=== PATIENT | female | born 1955 | race Caucasian/White ===

== ENCOUNTER 2018-07-03 22:26 | Inpatient (IN) | payer OTHER ==
[~2018-07-03] VITALS: Ht 167.6 cm; Wt 59.0 kg
[2018-07-03 22:45] VITALS: BP_SYST 142
[2018-07-03] MEDS ORDERED: COMMUNICATION ORDER XX ONE (22:45)
[2018-07-03] MEDS: MORPHINE 4 MG/ML INJ. SYRINGE IVP PRN (23:36)
[2018-07-03] MEDS ORDERED: LANS30CA56 PO (23:42)
[2018-07-03] MEDS ORDERED: NITR1PAT68 TD (23:43)
[2018-07-03] MEDS ORDERED: IPRA3AMP9 INH ×2 (23:45→23:53)
[2018-07-03] MEDS ORDERED: ASPI-1153 PO (23:46)
[2018-07-03] MEDS ORDERED: LIP10 PO (23:48)
[2018-07-03] MEDS ORDERED: AMLO5TAB4 PO (23:48)
[2018-07-03] MEDS ORDERED: ZIN220 PO (23:51)
[2018-07-03] MEDS ORDERED: ALPR0.5T PO (23:52)
[2018-07-03] MEDS ORDERED: DOCU-144 PO (23:54)
[2018-07-03] MEDS ORDERED: BISA10SU61 RC (23:55)
[2018-07-03] MEDS ORDERED: DIPH25CA83 PO (23:56)
[2018-07-03] MEDS ORDERED: HYDR-551 PO (23:58)
[2018-07-04] VITALS (7 sets, daily range): BP systolic 130–158
[2018-07-04] MEDS ORDERED: ARGI1POW13 PO
[2018-07-04 00:01] LABS: CALCIUM 9.1 mg/dL (8.4-11.0); CREATININE 1.49 mg/dL (0.55-1.30); POTASSIUM 4.1 mmol/L (3.5-5.1)
[2018-07-04] MEDS ORDERED: NEPH PO (00:01)
[2018-07-04] MEDS ORDERED: ASCO500S9 PO (00:03)
[2018-07-04] MEDS ORDERED: CALC500T3 PO (00:05)
[2018-07-04 00:07] LABS: ALBUMIN 2.5 g/dL (3.4-4.8); TOTAL BILIRUBIN 0.8 mg/dL (0.0-1.0)
[2018-07-04 00:10] LABS: BASOPHILS % (AUTO) 0.2 % (0.0-2.0); EOSINOPHILS % (AUTO) 0.4 % (0.0-4.0); HEMOGLOBIN 9.3 g/dL (12.0-16.0); LYMPHOCYTES # (AUTO) 0.7 K/uL (1.0-5.5); LYMPHOCYTES % (AUTO) 6.1 % (20.5-51.5); MEAN CORPUSCULAR HEMOGLOBIN 29 pg (27-31); MEAN CORPUSCULAR HGB CONC 33 % (32-36); MEAN CORPUSCULAR VOLUME 87 fL (79.0-98.0); MONOCYTES # (AUTO) 0.3 K/uL (0.0-1.0); MONOCYTES % (AUTO) 2.8 % (1.7-9.3); NEUTROPHILS # (AUTO) 10.8 K/uL (1.8-7.7); NEUTROPHILS % (AUTO) 90.5 % (40.0-70.0); PLATELET COUNT (AUTO) 383 K/uL (130-430); RED CELL DISTRIBUTION WIDTH 18.3 % (9.0-15.0); WHITE BLOOD COUNT (AUTO) 11.8 K/uL (4.8-10.8)
[2018-07-04 00:26] LABS: PROTHROMBIN TIME 10.3 SECS (9.5-12.5)
[2018-07-04] MEDS: MORPHINE 4 MG/ML INJ. SYRINGE IVP PRN ×2 (03:32→10:37)
[2018-07-04] MEDS ORDERED: HYDROmorphone 1 MG INJ. 1 MG/ML AMPUL IVP ONE (04:45)
[2018-07-04] MEDS ORDERED: MAGNESIUM CITRATE 300 ML ORAL SOLUTION GT ONE (09:45)
[2018-07-04] MEDS ORDERED: MINERAL OIL 30 ML UDC GT ONE (10:00)
[2018-07-04] MEDS: HYDROmorphone 1 MG INJ. 1 MG/ML AMPUL IVP PRN ×3 (13:15→22:49)
[2018-07-04] MEDS: MINERAL OIL 30 ML UDC GT SCH ×3 (13:16→23:39)
[2018-07-04] MEDS ORDERED: BISACODYL 10 MG/SUPPOSITORY RC PRN (13:45)
[2018-07-04] MEDS ORDERED: ONDANSETRON HCL 4 MG/2 ML VIAL IVP PRN (14:00)
[2018-07-04] MEDS ORDERED: NORMAL SALINE 5 ML DISP.SYRIN IVF SCH (14:00)
[2018-07-04] MEDS ORDERED: ACETAMINOPHEN 325 MG TABLET PO PRN (14:00)
[2018-07-04] MEDS ORDERED: NACL 0.9% 1,000 ML IV SCH (15:49)
[2018-07-04] MEDS ORDERED: cefTRIAXone 1 GM IVPB PREMIX 50 ML IV SCH (16:15)
[2018-07-04] MEDS ORDERED: cefTRIAXone 1 GM IVPB PREMIX 50 ML IV ONE (16:20)
[2018-07-04] MEDS ORDERED: NON-FORMULARY MEDICATION (Arginine/Ascorbate Sod/Vite AC (Arginaid Powder) 1 EACH) PO SCH (21:00)
[2018-07-04] MEDS: ATORVASTATIN 10 MG TABLET PO SCH (21:45)
[2018-07-04] MEDS: ASCORBIC ACID 500 MG TABLET PO SCH (21:45)
[2018-07-04] MEDS: NORMAL SALINE 5 ML DISP.SYRIN IVF SCH (22:50)
[2018-07-05 00:36] VITALS: BP_SYST 123
[2018-07-05] MEDS: HYDROmorphone 1 MG INJ. 1 MG/ML AMPUL IVP PRN ×5 (03:35→23:48)
[2018-07-05] MEDS: MINERAL OIL 30 ML UDC GT SCH (06:00)
[2018-07-05] MEDS: NORMAL SALINE 5 ML DISP.SYRIN IVF SCH ×3 (06:22→22:33)
[2018-07-05] MEDS ORDERED: MIDAZOLAM HCL 5 MG/5 ML VIAL ONE (07:11)
[2018-07-05] MEDS ORDERED: SIMETHICONE 40 MG/0.6 ML ML ONE (07:11)
[2018-07-05] MEDS ORDERED: MEPERIDINE HCL/PF 100 MG/ML AMP ONE (07:12)
[2018-07-05 07:20] LABS: CALCIUM 8.7 mg/dL (8.4-11.0); CREATININE 1.34 mg/dL (0.55-1.30); PHOSPHORUS 4.2 mg/dL (2.7-4.5); POTASSIUM 4.7 mmol/L (3.5-5.1)
[2018-07-05 07:48] LABS: HEMATOCRIT 27.8 % (36-48); HEMOGLOBIN 8.8 g/dL (12.0-16.0); MEAN CORPUSCULAR HEMOGLOBIN 28 pg (27-31); MEAN CORPUSCULAR HGB CONC 32 % (32-36); MEAN CORPUSCULAR VOLUME 89 fL (79.0-98.0); PLATELET COUNT (AUTO) 452 K/uL (130-430); RED BLOOD CELL COUNT(AUTO) 3.15 MIL/uL (4.2-6.2); RED CELL DISTRIBUTION WIDTH 18.5 % (9.0-15.0)
[2018-07-05 08:00] VITALS: BP_SYST 135
[2018-07-05 08:02] LABS: C-REACTIVE PROTEIN QUANT 13.2 mg/dL (0-0.5)
[2018-07-05 08:42] LABS: WHITE BLOOD COUNT (AUTO) 13.9 K/uL (4.8-10.8)
[2018-07-05] MEDS ORDERED: cefTRIAXone 1 GM IVPB PREMIX 50 ML IV SCH (09:00)
[2018-07-05] MEDS: ASPIRIN 81 MG TABLET(ECOTRIN) PO SCH (09:47)
[2018-07-05] MEDS: NEPHROVITE, (FOLIC ACID/VITAMIN B COMP W-C 1 TAB) PO SCH (09:48)
[2018-07-05] MEDS: PANTOPRAZOLE SODIUM 40 MG TAB PO SCH (09:51)
[2018-07-05] MEDS: ASCORBIC ACID 500 MG TABLET PO SCH ×2 (09:52→22:00)
[2018-07-05] MEDS: CALCIUM CARBONATE 500 MG/ TAB.CHEW PO SCH (09:53)
[2018-07-05] MEDS: NITROGLYCERIN 0.2 MG/HR PATCH.TD24 TD SCH (10:00)
[2018-07-05] MEDS: amLODIPine BESYLATE 5 MG TABLET PO SCH (10:04)
[2018-07-05 10:19] LABS: ERYTHROCYTE SEDIMENTATION RATE 48 MM/HR (0-20)
[2018-07-05 11:27] LABS: BAND % (MANUAL) 3 % (0-6); BASOPHILS % (MANUAL) 0 % (0-2); EOSINOPHILS % (MANUAL) 0 % (0-7); LYMPHOCYTES % (MANUAL) 2 % (20-46); MONOCYTES % (MANUAL) 1 % (0-11)
[2018-07-05] MEDS: PIPERACILLIN/TAZO 2.25G/DEX-IS 50 ML IV SCH ×2 (13:33→22:00)
[2018-07-05 15:27] VITALS: BP_SYST 147
[2018-07-05 19:45] VITALS: BP_SYST 147
[2018-07-05] MEDS: ATORVASTATIN 10 MG TABLET PO SCH (22:00)
[2018-07-05 23:32] VITALS: BP_SYST 145
[2018-07-06] MEDS: ALPRAZolam 0.25 MG TABLET PO PRN ×3 (00:34→23:56)
[2018-07-06 00:57] VITALS: BP_SYST 145
[2018-07-06] MEDS: HYDROmorphone 1 MG INJ. 1 MG/ML AMPUL IVP PRN ×5 (04:08→23:54)
[2018-07-06] MEDS: PIPERACILLIN/TAZO 2.25G/DEX-IS 50 ML IV SCH ×3 (05:28→21:04)
[2018-07-06] MEDS: NORMAL SALINE 5 ML DISP.SYRIN IVF SCH ×3 (05:33→21:04)
[2018-07-06 07:03] LABS: BASOPHILS % (AUTO) 0.4 % (0.0-2.0); EOSINOPHILS % (AUTO) 0.4 % (0.0-4.0); HEMATOCRIT 27.5 % (36-48); HEMOGLOBIN 8.8 g/dL (12.0-16.0); LYMPHOCYTES # (AUTO) 0.8 K/uL (1.0-5.5); LYMPHOCYTES % (AUTO) 7.4 % (20.5-51.5); MEAN CORPUSCULAR HEMOGLOBIN 28 pg (27-31); MEAN CORPUSCULAR HGB CONC 32 % (32-36); MEAN CORPUSCULAR VOLUME 89 fL (79.0-98.0); MONOCYTES # (AUTO) 0.2 K/uL (0.0-1.0); MONOCYTES % (AUTO) 2.1 % (1.7-9.3); NEUTROPHILS # (AUTO) 9.8 K/uL (1.8-7.7); NEUTROPHILS % (AUTO) 89.7 % (40.0-70.0); PLATELET COUNT (AUTO) 388 K/uL (130-430); RED BLOOD CELL COUNT(AUTO) 3.11 MIL/uL (4.2-6.2); RED CELL DISTRIBUTION WIDTH 17.7 % (9.0-15.0); WHITE BLOOD COUNT (AUTO) 10.8 K/uL (4.8-10.8)
[2018-07-06 07:18] LABS: CALCIUM 8.6 mg/dL (8.4-11.0); CREATININE 1.62 mg/dL (0.55-1.30); PHOSPHORUS 4.2 mg/dL (2.7-4.5); POTASSIUM 4.8 mmol/L (3.5-5.1)
[2018-07-06 07:33] LABS: C-REACTIVE PROTEIN QUANT 12.3 mg/dL (0-0.5)
[2018-07-06 08:00] VITALS: BP_SYST 150
[2018-07-06] MEDS: CALCIUM CARBONATE 500 MG/ TAB.CHEW PO SCH (08:42)
[2018-07-06] MEDS: ASPIRIN 81 MG TABLET(ECOTRIN) PO SCH (08:43)
[2018-07-06] MEDS: amLODIPine BESYLATE 5 MG TABLET PO SCH (08:43)
[2018-07-06] MEDS: NEPHROVITE, (FOLIC ACID/VITAMIN B COMP W-C 1 TAB) PO SCH (08:43)
[2018-07-06] MEDS: ASCORBIC ACID 500 MG TABLET PO SCH ×2 (08:43→21:04)
[2018-07-06] MEDS: PANTOPRAZOLE SODIUM 40 MG TAB PO SCH (08:43)
[2018-07-06] MEDS: NITROGLYCERIN 0.2 MG/HR PATCH.TD24 TD SCH (08:44)
[2018-07-06 08:53] LABS: ERYTHROCYTE SEDIMENTATION RATE 53 MM/HR (0-20)
[2018-07-06 12:28] VITALS: BP_SYST 153
[2018-07-06 15:38] VITALS: BP_SYST 145
[2018-07-06 20:00] VITALS: BP_SYST 153
[2018-07-06] MEDS: ATORVASTATIN 10 MG TABLET PO SCH (21:04)
[2018-07-06 23:24] LABS: CREATININE 1.6 mg/dL (0.55-1.30)
[2018-07-07] VITALS (7 sets, daily range): BP systolic 128–167
[2018-07-07 00:02] LABS: CREATININE CLEARANCE,URINE 24.4 ml/min (80-120); CREATININE,URINE 73.7 MG/DL (30-125)
[2018-07-07] MEDS: HYDROmorphone 1 MG INJ. 1 MG/ML AMPUL IVP PRN ×5 (04:53→21:31)
[2018-07-07] MEDS: PIPERACILLIN/TAZO 2.25G/DEX-IS 50 ML IV SCH ×3 (05:00→21:30)
[2018-07-07] MEDS: NORMAL SALINE 5 ML DISP.SYRIN IVF SCH ×3 (05:00→21:31)
[2018-07-07 06:50] LABS: BASOPHILS % (AUTO) 0.2 % (0.0-2.0); EOSINOPHILS % (AUTO) 0.1 % (0.0-4.0); MEAN CORPUSCULAR HEMOGLOBIN 29 pg (27-31); MEAN CORPUSCULAR HGB CONC 33 % (32-36); MEAN CORPUSCULAR VOLUME 87 fL (79.0-98.0); RED CELL DISTRIBUTION WIDTH 17.9 % (9.0-15.0)
[2018-07-07 07:12] LABS: CALCIUM 8.8 mg/dL (8.4-11.0); CREATININE 1.78 mg/dL (0.55-1.30); PHOSPHORUS 4.9 mg/dL (2.7-4.5)
[2018-07-07 08:07] LABS: C-REACTIVE PROTEIN QUANT 16.2 mg/dL (0-0.5)
[2018-07-07 08:22] LABS: HEMATOCRIT 29.2 % (36-48); HEMOGLOBIN 9.6 g/dL (12.0-16.0); LYMPHOCYTES % (AUTO) 5.4 % (20.5-51.5); MONOCYTES % (AUTO) 3.4 % (1.7-9.3); PLATELET COUNT (AUTO) 482 K/uL (130-430); RED BLOOD CELL COUNT(AUTO) 3.35 MIL/uL (4.2-6.2); WHITE BLOOD COUNT (AUTO) 17.6 K/uL (4.8-10.8)
[2018-07-07 08:23] LABS: MONOCYTES # (AUTO) 0.6 K/uL (0.0-1.0)
[2018-07-07] MEDS: ALPRAZolam 0.25 MG TABLET PO PRN ×2 (09:05→20:06)
[2018-07-07 10:37] LABS: ERYTHROCYTE SEDIMENTATION RATE 63 MM/HR (0-20)
[2018-07-07 11:15] LABS: NEUTROPHILS % (AUTO) 90.9 % (40.0-70.0)
[2018-07-07] MEDS ORDERED: FUROSEMIDE 40 MG/4 ML VIAL IVP ONE (11:30)
[2018-07-07] MEDS: DIPHENHYDRAMINE HCL 25 MG CAPSULE PO PRN ×2 (13:09→20:30)
[2018-07-07] MEDS: NITROGLYCERIN 0.2 MG/HR PATCH.TD24 TD SCH (13:13)
[2018-07-07] MEDS: ASPIRIN 81 MG TABLET(ECOTRIN) PO SCH (13:13)
[2018-07-07] MEDS: NEPHROVITE, (FOLIC ACID/VITAMIN B COMP W-C 1 TAB) PO SCH (13:13)
[2018-07-07] MEDS: ASCORBIC ACID 500 MG TABLET PO SCH ×2 (13:13→20:06)
[2018-07-07] MEDS: amLODIPine BESYLATE 5 MG TABLET PO SCH (13:14)
[2018-07-07] MEDS: PANTOPRAZOLE SODIUM 40 MG TAB PO SCH (13:18)
[2018-07-07] MEDS: CALCIUM CARBONATE 500 MG/ TAB.CHEW PO SCH (13:18)
[2018-07-07] MEDS ORDERED: DIATR MEGLU/DIATRIZ SOD 30 ML SOLUTION PO ONE (15:16)
[2018-07-07] MEDS: ATORVASTATIN 10 MG TABLET PO SCH (20:06)
[2018-07-07] MEDS: HYDROcodone/ACETAMIN 7.5-325 MG TAB PO PRN (23:57)
[2018-07-08 00:16] VITALS: BP_SYST 150
[2018-07-08] MEDS: HYDROmorphone 1 MG INJ. 1 MG/ML AMPUL IVP PRN ×6 (01:24→23:20)
[2018-07-08] MEDS: DIPHENHYDRAMINE HCL 25 MG CAPSULE PO PRN ×2 (04:07→21:06)
[2018-07-08] MEDS: ALPRAZolam 0.25 MG TABLET PO PRN ×2 (04:07→21:06)
[2018-07-08] MEDS: DOCUSATE SODIUM 100 MG CAPSULE PO PRN (05:11)
[2018-07-08] MEDS: PIPERACILLIN/TAZO 2.25G/DEX-IS 50 ML IV SCH ×3 (05:11→21:06)
[2018-07-08] MEDS: NORMAL SALINE 5 ML DISP.SYRIN IVF SCH ×3 (05:15→21:07)
[2018-07-08 06:59] LABS: HEMATOCRIT 24.9 % (36-48); HEMOGLOBIN 8.2 g/dL (12.0-16.0); MEAN CORPUSCULAR HEMOGLOBIN 29 pg (27-31); MEAN CORPUSCULAR HGB CONC 33 % (32-36); MEAN CORPUSCULAR VOLUME 88 fL (79.0-98.0); PLATELET COUNT (AUTO) 568 K/uL (130-430); RED CELL DISTRIBUTION WIDTH 17.9 % (9.0-15.0)
[2018-07-08 07:23] LABS: ALBUMIN 1.7 g/dL (3.4-4.8); C-REACTIVE PROTEIN QUANT 26.2 mg/dL (0-0.5); CALCIUM 8.3 mg/dL (8.4-11.0); CREATININE 2.02 mg/dL (0.55-1.30); PHOSPHORUS 5.7 mg/dL (2.7-4.5); POTASSIUM 4.8 mmol/L (3.5-5.1); TOTAL BILIRUBIN 0.9 mg/dL (0.0-1.0)
[2018-07-08 08:00] VITALS: BP_SYST 107
[2018-07-08 08:09] LABS: RED BLOOD CELL COUNT(AUTO) 2.84 MIL/uL (4.2-6.2); WHITE BLOOD COUNT (AUTO) 20.3 K/uL (4.8-10.8)
[2018-07-08 09:05] LABS: ERYTHROCYTE SEDIMENTATION RATE 53 MM/HR (0-20)
[2018-07-08 09:17] LABS: BAND % (MANUAL) 1 % (0-6); LYMPHOCYTES % (MANUAL) 5 % (20-46)
[2018-07-08 09:18] LABS: BASOPHILS % (MANUAL) 0 % (0-2); EOSINOPHILS % (MANUAL) 2 % (0-7); MONOCYTES % (MANUAL) 2 % (0-11)
[2018-07-08] MEDS: ASCORBIC ACID 500 MG TABLET PO SCH ×2 (09:25→21:06)
[2018-07-08] MEDS: NEPHROVITE, (FOLIC ACID/VITAMIN B COMP W-C 1 TAB) PO SCH (09:25)
[2018-07-08] MEDS: ASPIRIN 81 MG TABLET(ECOTRIN) PO SCH (09:26)
[2018-07-08] MEDS: PANTOPRAZOLE SODIUM 40 MG TAB PO SCH (09:26)
[2018-07-08] MEDS: CALCIUM CARBONATE 500 MG/ TAB.CHEW PO SCH (09:26)
[2018-07-08] MEDS: NITROGLYCERIN 0.2 MG/HR PATCH.TD24 TD SCH (09:28)
[2018-07-08] MEDS: amLODIPine BESYLATE 5 MG TABLET PO SCH (09:32)
[2018-07-08 12:25] VITALS: BP_SYST 148
[2018-07-08 16:02] VITALS: BP_SYST 119
[2018-07-08 19:16] VITALS: BP_SYST 131
[2018-07-08] MEDS: ATORVASTATIN 10 MG TABLET PO SCH (21:06)
[2018-07-08] MEDS: IPRATROPIUM/ALBUTEROL SULFATE 3 ML AMPUL.NEB (DUONEB) INH PRN (21:24)
[2018-07-08 23:35] VITALS: BP_SYST 122
[2018-07-09] MEDS: HYDROcodone/ACETAMIN 7.5-325 MG TAB PO PRN ×2 (02:21→13:07)
[2018-07-09] MEDS: DOCUSATE SODIUM 100 MG CAPSULE PO PRN ×2 (02:21→21:51)
[2018-07-09] MEDS: HYDROmorphone 1 MG INJ. 1 MG/ML AMPUL IVP PRN ×4 (03:16→21:50)
[2018-07-09] MEDS: PIPERACILLIN/TAZO 2.25G/DEX-IS 50 ML IV SCH ×3 (05:43→21:51)
[2018-07-09] MEDS: NORMAL SALINE 5 ML DISP.SYRIN IVF SCH ×3 (05:44→21:51)
[2018-07-09] MEDS: DIPHENHYDRAMINE HCL 25 MG CAPSULE PO PRN ×3 (05:44→21:50)
[2018-07-09] MEDS: ALPRAZolam 0.25 MG TABLET PO PRN ×2 (05:44→14:56)
[2018-07-09 08:22] VITALS: BP_SYST 134
[2018-07-09 09:18] LABS: HEMOGLOBIN 10.1 g/dL (12.0-16.0); MEAN CORPUSCULAR HEMOGLOBIN 28 pg (27-31); MEAN CORPUSCULAR HGB CONC 32 % (32-36); MEAN CORPUSCULAR VOLUME 88 fL (79.0-98.0); PLATELET COUNT (AUTO) 574 K/uL (130-430); RED CELL DISTRIBUTION WIDTH 17.4 % (9.0-15.0)
[2018-07-09 09:29] LABS: CALCIUM 8.6 mg/dL (8.4-11.0); CREATININE 2.3 mg/dL (0.55-1.30); POTASSIUM 4.7 mmol/L (3.5-5.1)
[2018-07-09 09:34] LABS: ALBUMIN 2.1 g/dL (3.4-4.8); TOTAL BILIRUBIN 0.7 mg/dL (0.0-1.0)
[2018-07-09 09:36] LABS: RED BLOOD CELL COUNT(AUTO) 3.64 MIL/uL (4.2-6.2); WHITE BLOOD COUNT (AUTO) 19.9 K/uL (4.8-10.8)
[2018-07-09] MEDS: CALCIUM CARBONATE 500 MG/ TAB.CHEW PO SCH (09:41)
[2018-07-09] MEDS: PANTOPRAZOLE SODIUM 40 MG TAB PO SCH (09:44)
[2018-07-09] MEDS: NITROGLYCERIN 0.2 MG/HR PATCH.TD24 TD SCH (09:44)
[2018-07-09] MEDS: ASPIRIN 81 MG TABLET(ECOTRIN) PO SCH (09:45)
[2018-07-09] MEDS: ASCORBIC ACID 500 MG TABLET PO SCH ×2 (09:45→21:51)
[2018-07-09] MEDS: amLODIPine BESYLATE 5 MG TABLET PO SCH (09:45)
[2018-07-09] MEDS: NEPHROVITE, (FOLIC ACID/VITAMIN B COMP W-C 1 TAB) PO SCH (09:45)
[2018-07-09 09:46] LABS: C-REACTIVE PROTEIN QUANT 12.8 mg/dL (0-0.5)
[2018-07-09 11:44] LABS: ERYTHROCYTE SEDIMENTATION RATE 36 MM/HR (0-20)
[2018-07-09 12:19] VITALS: BP_SYST 110
[2018-07-09 13:07] LABS: ATYPICAL LYMPHOCYTES % 2 % (0-0); BAND % (MANUAL) 3 % (0-6); LYMPHOCYTES % (MANUAL) 10 % (20-46); MONOCYTES % (MANUAL) 6 % (0-11)
[2018-07-09 13:08] LABS: BASOPHILS % (MANUAL) 0 % (0-2); EOSINOPHILS % (MANUAL) 3 % (0-7)
[2018-07-09 16:56] VITALS: BP_SYST 117
[2018-07-09 19:20] VITALS: BP_SYST 139
[2018-07-09] MEDS: ATORVASTATIN 10 MG TABLET PO SCH (21:51)
[2018-07-09 23:32] VITALS: BP_SYST 149
[2018-07-10] MEDS: ALPRAZolam 0.25 MG TABLET PO PRN ×3 (01:35→20:29)
[2018-07-10] MEDS: HYDROmorphone 1 MG INJ. 1 MG/ML AMPUL IVP PRN ×5 (01:36→23:54)
[2018-07-10] MEDS: HYDROcodone/ACETAMIN 7.5-325 MG TAB PO PRN (03:16)
[2018-07-10 06:05] LABS: C-REACTIVE PROTEIN QUANT 7.5 mg/dL (0-0.5); CREATININE 2.05 mg/dL (0.55-1.30); PHOSPHORUS 4.6 mg/dL (2.7-4.5); POTASSIUM 4.8 mmol/L (3.5-5.1)
[2018-07-10] MEDS: NORMAL SALINE 5 ML DISP.SYRIN IVF SCH ×3 (06:22→22:47)
[2018-07-10] MEDS: PIPERACILLIN/TAZO 2.25G/DEX-IS 50 ML IV SCH ×3 (06:22→22:46)
[2018-07-10 07:26] LABS: HEMATOCRIT 24.2 % (36-48); MEAN CORPUSCULAR HEMOGLOBIN 29 pg (27-31); MEAN CORPUSCULAR HGB CONC 33 % (32-36); MEAN CORPUSCULAR VOLUME 87 fL (79.0-98.0); PLATELET COUNT (AUTO) 616 K/uL (130-430); RED CELL DISTRIBUTION WIDTH 17.4 % (9.0-15.0)
[2018-07-10 08:00] VITALS: BP_SYST 147
[2018-07-10 08:43] LABS: RED BLOOD CELL COUNT(AUTO) 2.78 MIL/uL (4.2-6.2)
[2018-07-10 08:44] LABS: WHITE BLOOD COUNT (AUTO) 12.4 K/uL (4.8-10.8)
[2018-07-10] MEDS: CALCIUM CARBONATE 500 MG/ TAB.CHEW PO SCH (08:47)
[2018-07-10] MEDS: NEPHROVITE, (FOLIC ACID/VITAMIN B COMP W-C 1 TAB) PO SCH (08:48)
[2018-07-10] MEDS: ASCORBIC ACID 500 MG TABLET PO SCH ×2 (08:48→20:28)
[2018-07-10] MEDS: PANTOPRAZOLE SODIUM 40 MG TAB PO SCH (08:48)
[2018-07-10] MEDS: amLODIPine BESYLATE 5 MG TABLET PO SCH (08:49)
[2018-07-10] MEDS: ASPIRIN 81 MG TABLET(ECOTRIN) PO SCH (08:50)
[2018-07-10] MEDS: DIPHENHYDRAMINE HCL 25 MG CAPSULE PO PRN (09:14)
[2018-07-10] MEDS: NITROGLYCERIN 0.2 MG/HR PATCH.TD24 TD SCH (09:14)
[2018-07-10] MEDS ORDERED: LIDOCAINE 1%, 20 ML MDV 20 ML ONE (10:01)
[2018-07-10 10:03] LABS: ERYTHROCYTE SEDIMENTATION RATE 46 MM/HR (0-20)
[2018-07-10 10:17] LABS: BAND % (MANUAL) 1 % (0-6); LYMPHOCYTES % (MANUAL) 15 % (20-46)
[2018-07-10 10:18] LABS: BASOPHILS % (MANUAL) 0 % (0-2); EOSINOPHILS % (MANUAL) 1 % (0-7); MONOCYTES % (MANUAL) 3 % (0-11)
[2018-07-10 12:00] VITALS: BP_SYST 124
[2018-07-10 16:11] VITALS: BP_SYST 120
[2018-07-10 19:00] VITALS: BP_SYST 120
[2018-07-10 20:00] VITALS: BP_SYST 115
[2018-07-10] MEDS: ATORVASTATIN 10 MG TABLET PO SCH (20:27)
[2018-07-11 00:06] VITALS: BP_SYST 150
[2018-07-11] MEDS: DIPHENHYDRAMINE HCL 25 MG CAPSULE PO PRN (02:07)
[2018-07-11] MEDS: HYDROmorphone 1 MG INJ. 1 MG/ML AMPUL IVP PRN ×4 (04:35→20:15)
[2018-07-11] MEDS: ALPRAZolam 0.25 MG TABLET PO PRN ×2 (04:38→15:41)
[2018-07-11] MEDS: NORMAL SALINE 5 ML DISP.SYRIN IVF SCH ×3 (06:42→22:54)
[2018-07-11] MEDS: PIPERACILLIN/TAZO 2.25G/DEX-IS 50 ML IV SCH ×3 (06:42→22:53)
[2018-07-11] MEDS: HYDROcodone/ACETAMIN 7.5-325 MG TAB PO PRN ×2 (06:49→22:54)
[2018-07-11 07:57] LABS: ALBUMIN 2.1 g/dL (3.4-4.8); C-REACTIVE PROTEIN QUANT 8.3 mg/dL (0-0.5); CALCIUM 8.7 mg/dL (8.4-11.0); CREATININE 2.1 mg/dL (0.55-1.30); PHOSPHORUS 4.4 mg/dL (2.7-4.5); POTASSIUM 4.3 mmol/L (3.5-5.1); TOTAL BILIRUBIN 0.6 mg/dL (0.0-1.0)
[2018-07-11 08:24] LABS: HEMATOCRIT 26.9 % (36-48); MEAN CORPUSCULAR HEMOGLOBIN 29 pg (27-31); MEAN CORPUSCULAR HGB CONC 33 % (32-36); MEAN CORPUSCULAR VOLUME 87 fL (79.0-98.0); PLATELET COUNT (AUTO) 640 K/uL (130-430); RED BLOOD CELL COUNT(AUTO) 3.09 MIL/uL (4.2-6.2); RED CELL DISTRIBUTION WIDTH 17.9 % (9.0-15.0)
[2018-07-11] MEDS: CALCIUM CARBONATE 500 MG/ TAB.CHEW PO SCH (08:43)
[2018-07-11] MEDS: NEPHROVITE, (FOLIC ACID/VITAMIN B COMP W-C 1 TAB) PO SCH (08:43)
[2018-07-11] MEDS: ASCORBIC ACID 500 MG TABLET PO SCH ×2 (08:43→20:16)
[2018-07-11] MEDS: PANTOPRAZOLE SODIUM 40 MG TAB PO SCH (08:43)
[2018-07-11] MEDS: ASPIRIN 81 MG TABLET(ECOTRIN) PO SCH (08:46)
[2018-07-11] MEDS: NITROGLYCERIN 0.2 MG/HR PATCH.TD24 TD SCH (08:46)
[2018-07-11] MEDS: amLODIPine BESYLATE 5 MG TABLET PO SCH (08:46)
[2018-07-11 08:50] LABS: WHITE BLOOD COUNT (AUTO) 29.6 K/uL (4.8-10.8)
[2018-07-11 11:12] LABS: BASOPHILS % (MANUAL) 0 % (0-2); EOSINOPHILS % (MANUAL) 0 % (0-7); LYMPHOCYTES % (MANUAL) 11 % (20-46); MONOCYTES % (MANUAL) 3 % (0-11)
[2018-07-11 11:13] LABS: ERYTHROCYTE SEDIMENTATION RATE 51 MM/HR (0-20)
[2018-07-11 11:34] VITALS: BP_SYST 141
[2018-07-11 15:36] VITALS: BP_SYST 145
[2018-07-11 20:15] VITALS: BP_SYST 143
[2018-07-11] MEDS: ATORVASTATIN 10 MG TABLET PO SCH (20:16)
[2018-07-12 01:11] VITALS: BP_SYST 131
[2018-07-12] MEDS: HYDROmorphone 1 MG INJ. 1 MG/ML AMPUL IVP PRN ×5 (04:59→21:14)
[2018-07-12] MEDS ORDERED: metroNIDAZOLE 500 mg/NS 100 ML IV ONE (05:48)
[2018-07-12] MEDS: metroNIDAZOLE 500 mg/NS 100 ML IV SCH ×3 (06:39→21:12)
[2018-07-12] MEDS: HYDROcodone/ACETAMIN 7.5-325 MG TAB PO PRN ×2 (06:40→18:58)
[2018-07-12] MEDS: NORMAL SALINE 5 ML DISP.SYRIN IVF SCH ×3 (06:41→21:13)
[2018-07-12 07:20] LABS: HEMATOCRIT 30.1 % (36-48); HEMOGLOBIN 10.1 g/dL (12.0-16.0); MEAN CORPUSCULAR HEMOGLOBIN 29 pg (27-31); MEAN CORPUSCULAR HGB CONC 34 % (32-36); MEAN CORPUSCULAR VOLUME 87 fL (79.0-98.0); RED BLOOD CELL COUNT(AUTO) 3.46 MIL/uL (4.2-6.2); RED CELL DISTRIBUTION WIDTH 17.7 % (9.0-15.0); WHITE BLOOD COUNT (AUTO) 22.6 K/uL (4.8-10.8)
[2018-07-12 07:35] LABS: CREATININE 2.48 mg/dL (0.55-1.30)
[2018-07-12 07:44] VITALS: BP_SYST 131
[2018-07-12 08:00] VITALS: BP_SYST 131
[2018-07-12 08:29] LABS: PLATELET COUNT (AUTO) 1067 K/uL (130-430)
[2018-07-12 08:56] LABS: PHOSPHORUS 5.1 mg/dL (2.7-4.5)
[2018-07-12] MEDS ORDERED: BISACODYL 10 MG/SUPPOSITORY RC ONE (09:00)
[2018-07-12] MEDS: NEPHROVITE, (FOLIC ACID/VITAMIN B COMP W-C 1 TAB) PO SCH (09:08)
[2018-07-12] MEDS: amLODIPine BESYLATE 5 MG TABLET PO SCH (09:09)
[2018-07-12] MEDS: ASPIRIN 81 MG TABLET(ECOTRIN) PO SCH (09:09)
[2018-07-12] MEDS: CALCIUM CARBONATE 500 MG/ TAB.CHEW PO SCH (09:09)
[2018-07-12] MEDS: ASCORBIC ACID 500 MG TABLET PO SCH ×2 (09:09→21:11)
[2018-07-12] MEDS: PANTOPRAZOLE SODIUM 40 MG TAB PO SCH (09:09)
[2018-07-12] MEDS: NITROGLYCERIN 0.2 MG/HR PATCH.TD24 TD SCH (09:10)
[2018-07-12] MEDS: POLYETHYLENE GLYCOL 3350, 17 GM/ POWD.PACK PO SCH (09:17)
[2018-07-12] MEDS ORDERED: ENOXAPARIN SODIUM 40 MG/0.4 ML SYRINGE SUBCUT ONE (09:30)
[2018-07-12 10:41] LABS: ATYPICAL LYMPHOCYTES % 1 % (0-0); BAND % (MANUAL) 3 % (0-6); BASOPHILS % (MANUAL) 0 % (0-2); EOSINOPHILS % (MANUAL) 3 % (0-7); LYMPHOCYTES % (MANUAL) 13 % (20-46); MONOCYTES % (MANUAL) 1 % (0-11)
[2018-07-12 11:23] VITALS: BP_SYST 137
[2018-07-12 15:24] VITALS: BP_SYST 139
[2018-07-12 17:03] LABS: BILIRUBIN,URINE NEGATIVE (NEGATIVE); BLOOD, URINE 2+ (NEGATIVE); CLARITY/URINE CLEAR (CLEAR); COLOR,URINE YELLOW (YELLOW); GLUCOSE,URINE NEGATIVE (NEGATIVE); KETONES,URINE NEGATIVE (NEGATIVE); LEUKOCYTE ESTERASE ,URINE TRACE (NEGATIVE); NITRITE, URINE NEGATIVE (NEGATIVE); PROTEIN URINE 2+ (NEGATIVE); UROBILINOGEN,URINE 0.2 (0.2-1.0)
[2018-07-12] MEDS: 0.45% NACL 1,000 ML IV SCH (17:14)
[2018-07-12] MEDS: DIPHENHYDRAMINE HCL 25 MG CAPSULE PO PRN (17:16)
[2018-07-12 17:21] LABS: BACTERIA,URINE MODERATE /HPF (None Seen)
[2018-07-12 17:22] LABS: YEAST,URINE Few /HPF (None Seen)
[2018-07-12 20:00] VITALS: BP_SYST 153
[2018-07-12] MEDS: ATORVASTATIN 10 MG TABLET PO SCH (21:12)
[2018-07-12 22:12] LABS: CHLORIDE,URINE RANDOM 19 mmol/L (55-125); URINE SODIUM, RANDOM 12 mmol/L (40-220)
[2018-07-12] MEDS: ALPRAZolam 0.25 MG TABLET PO PRN (22:42)
[2018-07-13 00:15] VITALS: BP_SYST 111
[2018-07-13] MEDS: HYDROmorphone 1 MG INJ. 1 MG/ML AMPUL IVP PRN ×4 (01:18→16:57)
[2018-07-13] MEDS: metroNIDAZOLE 500 mg/NS 100 ML IV SCH (06:21)
[2018-07-13] MEDS: 0.45% NACL 1,000 ML IV SCH ×2 (06:21→19:41)
[2018-07-13] MEDS: NORMAL SALINE 5 ML DISP.SYRIN IVF SCH ×2 (06:34→13:56)
[2018-07-13 08:00] VITALS: BP_SYST 143
[2018-07-13] MEDS: ENOXAPARIN SODIUM 40 MG/0.4 ML SYRINGE SUBCUT SCH (08:43)
[2018-07-13] MEDS: ASPIRIN 81 MG TABLET(ECOTRIN) PO SCH (08:44)
[2018-07-13] MEDS: ASCORBIC ACID 500 MG TABLET PO SCH ×2 (08:44→22:19)
[2018-07-13] MEDS: NEPHROVITE, (FOLIC ACID/VITAMIN B COMP W-C 1 TAB) PO SCH (08:44)
[2018-07-13] MEDS: CALCIUM CARBONATE 500 MG/ TAB.CHEW PO SCH (08:44)
[2018-07-13] MEDS: PANTOPRAZOLE SODIUM 40 MG TAB PO SCH (08:44)
[2018-07-13] MEDS: POLYETHYLENE GLYCOL 3350, 17 GM/ POWD.PACK PO SCH (08:44)
[2018-07-13] MEDS: HYDROcodone/ACETAMIN 7.5-325 MG TAB PO PRN ×2 (08:45→19:38)
[2018-07-13] MEDS: amLODIPine BESYLATE 5 MG TABLET PO SCH (08:46)
[2018-07-13 09:00] LABS: ALBUMIN 2.1 g/dL (3.4-4.8); C-REACTIVE PROTEIN QUANT 9.7 mg/dL (0-0.5); CALCIUM 8.6 mg/dL (8.4-11.0); CREATININE 2.42 mg/dL (0.55-1.30); POTASSIUM 4.8 mmol/L (3.5-5.1); TOTAL BILIRUBIN 0.5 mg/dL (0.0-1.0)
[2018-07-13 09:41] LABS: BASOPHILS # (AUTO) 0.1 K/uL (0.0-0.2); BASOPHILS % (AUTO) 0.9 % (0.0-2.0); EOSINOPHILS # (AUTO) 0.3 K/uL (0.0-0.4); EOSINOPHILS % (AUTO) 2.5 % (0.0-4.0); HEMATOCRIT 30.2 % (36-48); HEMOGLOBIN 9.6 g/dL (12.0-16.0); LYMPHOCYTES # (AUTO) 1.2 K/uL (1.0-5.5); LYMPHOCYTES % (AUTO) 10.4 % (20.5-51.5); MEAN CORPUSCULAR HEMOGLOBIN 28 pg (27-31); MEAN CORPUSCULAR HGB CONC 32 % (32-36); MEAN CORPUSCULAR VOLUME 88 fL (79.0-98.0); MONOCYTES # (AUTO) 0.1 K/uL (0.0-1.0); MONOCYTES % (AUTO) 1.3 % (1.7-9.3); NEUTROPHILS # (AUTO) 9.4 K/uL (1.8-7.7); NEUTROPHILS % (AUTO) 84.9 % (40.0-70.0); PLATELET COUNT (AUTO) 671 K/uL (130-430); RED BLOOD CELL COUNT(AUTO) 3.42 MIL/uL (4.2-6.2); RED CELL DISTRIBUTION WIDTH 18.1 % (9.0-15.0); WHITE BLOOD COUNT (AUTO) 11.1 K/uL (4.8-10.8)
[2018-07-13] MEDS ORDERED: CIPROFLOXACIN HCL 500 MG TABLET PO ONE (10:30)
[2018-07-13 11:00] LABS: ERYTHROCYTE SEDIMENTATION RATE 44 MM/HR (0-20)
[2018-07-13] MEDS: NITROGLYCERIN 0.2 MG/HR PATCH.TD24 TD SCH (11:48)
[2018-07-13 12:02] VITALS: BP_SYST 143
[2018-07-13] MEDS: MAGNESIUM CITRATE 300 ML ORAL SOLUTION PO ONE ×2 (14:44→14:47)
[2018-07-13] MEDS: MUPIROCIN 2% TOPICAL OINTMENT 22 GM NS SCH ×2 (14:44→22:20)
[2018-07-13 16:02] VITALS: BP_SYST 139
[2018-07-13 20:00] VITALS: BP_SYST 157
[2018-07-13] MEDS: ATORVASTATIN 10 MG TABLET PO SCH (22:18)
[2018-07-13] MEDS: ALPRAZolam 0.25 MG TABLET PO PRN (22:19)
[2018-07-13] MEDS: metroNIDAZOLE 500 MG TABLET PO SCH (22:19)
[2018-07-13] MEDS: CIPROFLOXACIN HCL 500 MG TABLET PO SCH (22:20)
[2018-07-13 23:29] VITALS: BP_SYST 157
[2018-07-14] MEDS: HYDROmorphone 1 MG INJ. 1 MG/ML AMPUL IVP PRN ×4 (01:13→20:39)
[2018-07-14 06:47] LABS: HEMATOCRIT 24.1 % (36-48); HEMOGLOBIN 7.9 g/dL (12.0-16.0); MEAN CORPUSCULAR HEMOGLOBIN 29 pg (27-31); MEAN CORPUSCULAR HGB CONC 33 % (32-36); MEAN CORPUSCULAR VOLUME 88 fL (79.0-98.0); PLATELET COUNT (AUTO) 561 K/uL (130-430); RED BLOOD CELL COUNT(AUTO) 2.73 MIL/uL (4.2-6.2); RED CELL DISTRIBUTION WIDTH 17.5 % (9.0-15.0)
[2018-07-14 07:06] LABS: C-REACTIVE PROTEIN QUANT 7.9 mg/dL (0-0.5); CALCIUM 8.3 mg/dL (8.4-11.0); CREATININE 2.52 mg/dL (0.55-1.30); PHOSPHORUS 4.4 mg/dL (2.7-4.5); POTASSIUM 4.9 mmol/L (3.5-5.1)
[2018-07-14 08:07] VITALS: BP_SYST 151
[2018-07-14] MEDS: 0.45% NACL 1,000 ML IV SCH (08:15)
[2018-07-14] MEDS: NEPHROVITE, (FOLIC ACID/VITAMIN B COMP W-C 1 TAB) PO SCH (09:01)
[2018-07-14] MEDS: metroNIDAZOLE 500 MG TABLET PO SCH ×2 (09:01→20:38)
[2018-07-14] MEDS: ASPIRIN 81 MG TABLET(ECOTRIN) PO SCH (09:01)
[2018-07-14] MEDS: MUPIROCIN 2% TOPICAL OINTMENT 22 GM NS SCH ×2 (09:01→20:38)
[2018-07-14] MEDS: POLYETHYLENE GLYCOL 3350, 17 GM/ POWD.PACK PO SCH (09:01)
[2018-07-14] MEDS: PANTOPRAZOLE SODIUM 40 MG TAB PO SCH (09:01)
[2018-07-14] MEDS: ASCORBIC ACID 500 MG TABLET PO SCH ×2 (09:01→20:38)
[2018-07-14] MEDS: CIPROFLOXACIN HCL 500 MG TABLET PO SCH ×2 (09:02→22:16)
[2018-07-14] MEDS: amLODIPine BESYLATE 5 MG TABLET PO SCH (09:02)
[2018-07-14] MEDS: CALCIUM CARBONATE 500 MG/ TAB.CHEW PO SCH (09:02)
[2018-07-14] MEDS: NITROGLYCERIN 0.2 MG/HR PATCH.TD24 TD SCH (09:03)
[2018-07-14] MEDS: ENOXAPARIN SODIUM 40 MG/0.4 ML SYRINGE SUBCUT SCH (09:04)
[2018-07-14] MEDS: IPRATROPIUM/ALBUTEROL SULFATE 3 ML AMPUL.NEB (DUONEB) INH PRN ×3 (10:17→19:41)
[2018-07-14 11:08] LABS: ERYTHROCYTE SEDIMENTATION RATE 55 MM/HR (0-20)
[2018-07-14 12:00] VITALS: BP_SYST 129
[2018-07-14 13:49] LABS: WHITE BLOOD COUNT (AUTO) 15.6 K/uL (4.8-10.8)
[2018-07-14 13:56] LABS: BAND % (MANUAL) 9 % (0-6); LYMPHOCYTES % (MANUAL) 5 % (20-46)
[2018-07-14 13:57] LABS: BASOPHILS % (MANUAL) 0 % (0-2); EOSINOPHILS % (MANUAL) 0 % (0-7); METAMYELOCYTES % 1 % (0-0); MONOCYTES % (MANUAL) 2 % (0-11)
[2018-07-14] MEDS: NACL 0.9% 1,000 ML IV SCH (13:57)
[2018-07-14] MEDS ORDERED: DIATR MEGLU/DIATRIZ SOD 30 ML SOLUTION PO ONE ×2 (14:10→14:47)
[2018-07-14 16:55] VITALS: BP_SYST 132
[2018-07-14 20:00] VITALS: BP_SYST 142
[2018-07-14] MEDS: ATORVASTATIN 10 MG TABLET PO SCH (20:38)
[2018-07-14] MEDS: NORMAL SALINE 5 ML DISP.SYRIN IVF SCH (22:16)
[2018-07-14] MEDS: ALPRAZolam 0.25 MG TABLET PO PRN (23:04)
[2018-07-15] VITALS (7 sets, daily range): BP systolic 128–176
[2018-07-15] MEDS: HYDROmorphone 1 MG INJ. 1 MG/ML AMPUL IVP PRN ×5 (01:06→22:33)
[2018-07-15] MEDS: NACL 0.9% 1,000 ML IV SCH ×2 (04:47→18:42)
[2018-07-15] MEDS: NORMAL SALINE 5 ML DISP.SYRIN IVF SCH ×3 (06:00→22:32)
[2018-07-15] MEDS ORDERED: METOPROLOL TARTRATE 25 MG TABLET PO ONE (06:00)
[2018-07-15 07:00] LABS: TOTAL IRON BIND. CAPACITY 208 ug/dL (250-450)
[2018-07-15] MEDS ORDERED: NS 250 ML IV SCH (07:00)
[2018-07-15 07:05] LABS: INR 1.1 (0.8-1.2); PROTHROMBIN TIME 10.9 SECS (9.5-12.5)
[2018-07-15 07:13] LABS: HEMATOCRIT 24.1 % (36-48); MEAN CORPUSCULAR HGB CONC 33 % (32-36)
[2018-07-15 07:20] LABS: MEAN CORPUSCULAR HEMOGLOBIN 29 pg (27-31); MEAN CORPUSCULAR VOLUME 88 fL (79.0-98.0); RED BLOOD CELL COUNT(AUTO) 2.73 MIL/uL (4.2-6.2); RED CELL DISTRIBUTION WIDTH 17.8 % (9.0-15.0); WHITE BLOOD COUNT (AUTO) 25.6 K/uL (4.8-10.8)
[2018-07-15 07:22] LABS: PLATELET COUNT (AUTO) 541 K/uL (130-430)
[2018-07-15 07:24] LABS: ALBUMIN 2.1 g/dL (3.4-4.8); C-REACTIVE PROTEIN QUANT 8.3 mg/dL (0-0.5); CALCIUM 8.3 mg/dL (8.4-11.0); CREATININE 3.07 mg/dL (0.55-1.30); PHOSPHORUS 4.8 mg/dL (2.7-4.5); TOTAL BILIRUBIN 0.5 mg/dL (0.0-1.0)
[2018-07-15 07:26] LABS: POTASSIUM 5.7 mmol/L (3.5-5.1)
[2018-07-15] MEDS: IPRATROPIUM/ALBUTEROL SULFATE 3 ML AMPUL.NEB (DUONEB) INH PRN ×4 (07:35→21:29)
[2018-07-15 08:05] LABS: BAND % (MANUAL) 1 % (0-6); BASOPHILS % (MANUAL) 0 % (0-2); EOSINOPHILS % (MANUAL) 1 % (0-7); LYMPHOCYTES % (MANUAL) 8 % (20-46); MONOCYTES % (MANUAL) 4 % (0-11)
[2018-07-15 08:08] LABS: ERYTHROCYTE SEDIMENTATION RATE 72 MM/HR (0-20)
[2018-07-15] MEDS: metroNIDAZOLE 500 MG TABLET PO SCH ×2 (10:31→22:31)
[2018-07-15] MEDS: ALPRAZolam 0.25 MG TABLET PO PRN ×2 (10:31→20:06)
[2018-07-15] MEDS: PANTOPRAZOLE SODIUM 40 MG TAB PO SCH (10:32)
[2018-07-15] MEDS: NEPHROVITE, (FOLIC ACID/VITAMIN B COMP W-C 1 TAB) PO SCH (10:32)
[2018-07-15] MEDS: CIPROFLOXACIN HCL 500 MG TABLET PO SCH ×2 (10:32→22:32)
[2018-07-15] MEDS: ASPIRIN 81 MG TABLET(ECOTRIN) PO SCH (10:32)
[2018-07-15] MEDS: ASCORBIC ACID 500 MG TABLET PO SCH ×2 (10:33→22:31)
[2018-07-15] MEDS: NITROGLYCERIN 0.2 MG/HR PATCH.TD24 TD SCH (10:33)
[2018-07-15] MEDS: CALCIUM CARBONATE 500 MG/ TAB.CHEW PO SCH (10:33)
[2018-07-15] MEDS: POLYETHYLENE GLYCOL 3350, 17 GM/ POWD.PACK PO SCH (10:34)
[2018-07-15] MEDS: amLODIPine BESYLATE 5 MG TABLET PO SCH (10:35)
[2018-07-15] MEDS: MUPIROCIN 2% TOPICAL OINTMENT 22 GM NS SCH ×2 (10:35→21:00)
[2018-07-15] MEDS: ENOXAPARIN SODIUM 40 MG/0.4 ML SYRINGE SUBCUT SCH (12:00)
[2018-07-15] MEDS ORDERED: SODIUM POLYSTYRENE SULFONATE 15 GM/60 ML UDBTL PO ONE (15:45)
[2018-07-15] MEDS ORDERED: METOPROLOL SUCCINATE 25 MG TAB.SR.24H (TOPROL XL) PO SCH (19:45)
[2018-07-15] MEDS ORDERED: DIGOXIN 0.5 MG/2 ML AMP IVP ONE (22:15)
[2018-07-15] MEDS: ATORVASTATIN 10 MG TABLET PO SCH (22:32)
[2018-07-15] MEDS ORDERED: LINEZOLID 300 ML IV ONE (23:45)
[2018-07-15] MEDS ORDERED: MEROPENEM 500 MG in NS 50 ML IV ONE (23:45)
[2018-07-16] VITALS (11 sets, daily range): BP systolic 144–170
[2018-07-16] MEDS ORDERED: LINEZOLID 300 ML IV ONE (00:15)
[2018-07-16] MEDS ORDERED: MEROPENEM 500 MG VIAL IV ONE (00:16)
[2018-07-16] MEDS: DILTIAZEM HCL 25 MG/5 ML VIAL IVP PRN ×3 (01:35→14:04)
[2018-07-16] MEDS: HYDROmorphone 1 MG INJ. 1 MG/ML AMPUL IVP PRN ×4 (02:48→21:25)
[2018-07-16] MEDS: DIPHENHYDRAMINE HCL 25 MG CAPSULE PO PRN (03:28)
[2018-07-16] MEDS: NORMAL SALINE 5 ML DISP.SYRIN IVF SCH ×3 (06:00→22:25)
[2018-07-16] MEDS: NACL 0.9% 1,000 ML IV SCH ×2 (06:08→22:24)
[2018-07-16 07:22] LABS: ALBUMIN 2.2 g/dL (3.4-4.8); C-REACTIVE PROTEIN QUANT 9.2 mg/dL (0-0.5); CREATININE 3.53 mg/dL (0.55-1.30); PHOSPHORUS 5.9 mg/dL (2.7-4.5); POTASSIUM 5.2 mmol/L (3.5-5.1); TOTAL BILIRUBIN 0.6 mg/dL (0.0-1.0)
[2018-07-16 07:37] LABS: HEMOGLOBIN 7.9 g/dL (12.0-16.0); MEAN CORPUSCULAR HEMOGLOBIN 29 pg (27-31); MEAN CORPUSCULAR HGB CONC 33 % (32-36); MEAN CORPUSCULAR VOLUME 88 fL (79.0-98.0); PLATELET COUNT (AUTO) 360 K/uL (130-430); RED BLOOD CELL COUNT(AUTO) 2.73 MIL/uL (4.2-6.2); RED CELL DISTRIBUTION WIDTH 17.8 % (9.0-15.0); WHITE BLOOD COUNT (AUTO) 15.4 K/uL (4.8-10.8)
[2018-07-16] MEDS: POLYETHYLENE GLYCOL 3350, 17 GM/ POWD.PACK PO SCH (08:11)
[2018-07-16] MEDS: CALCIUM CARBONATE 500 MG/ TAB.CHEW PO SCH (08:11)
[2018-07-16] MEDS: amLODIPine BESYLATE 5 MG TABLET PO SCH (08:12)
[2018-07-16] MEDS: MUPIROCIN 2% TOPICAL OINTMENT 22 GM NS SCH ×2 (08:12→21:00)
[2018-07-16] MEDS: ASCORBIC ACID 500 MG TABLET PO SCH ×2 (08:12→21:25)
[2018-07-16] MEDS: metroNIDAZOLE 500 MG TABLET PO SCH ×2 (08:12→21:25)
[2018-07-16] MEDS: PANTOPRAZOLE SODIUM 40 MG TAB PO SCH (08:12)
[2018-07-16] MEDS: NEPHROVITE, (FOLIC ACID/VITAMIN B COMP W-C 1 TAB) PO SCH (08:13)
[2018-07-16] MEDS: METOPROLOL SUCCINATE 25 MG TAB.SR.24H (TOPROL XL) PO SCH (08:13)
[2018-07-16] MEDS: ASPIRIN 81 MG TABLET(ECOTRIN) PO SCH (08:13)
[2018-07-16 08:14] LABS: ERYTHROCYTE SEDIMENTATION RATE 84 MM/HR (0-20)
[2018-07-16] MEDS: ENOXAPARIN SODIUM 40 MG/0.4 ML SYRINGE SUBCUT SCH (08:14)
[2018-07-16] MEDS: NITROGLYCERIN 0.2 MG/HR PATCH.TD24 TD SCH (08:16)
[2018-07-16 08:18] LABS: BAND % (MANUAL) 4 % (0-6); BASOPHILS % (MANUAL) 0 % (0-2); EOSINOPHILS % (MANUAL) 1 % (0-7); LYMPHOCYTES % (MANUAL) 7 % (20-46); MONOCYTES % (MANUAL) 4 % (0-11)
[2018-07-16] MEDS: MEROPENEM 500 MG in NS 50 ML IV SCH ×2 (09:24→21:23)
[2018-07-16] MEDS: LINEZOLID 300 ML IV SCH ×2 (10:07→22:25)
[2018-07-16] MEDS: ALPRAZolam 0.25 MG TABLET PO PRN ×2 (10:50→23:26)
[2018-07-16] MEDS ORDERED: DILTIAZEM HCL 125 MG in D5W 100 ML IV SCH (16:00)
[2018-07-16] MEDS ORDERED: FUROSEMIDE 40 MG/4 ML VIAL IVP ONE (16:30)
[2018-07-16] MEDS: ATORVASTATIN 10 MG TABLET PO SCH (21:25)
[2018-07-17] MEDS: IPRATROPIUM/ALBUTEROL SULFATE 3 ML AMPUL.NEB (DUONEB) INH PRN ×2 (00:49→22:23)
[2018-07-17] MEDS: HYDROmorphone 1 MG INJ. 1 MG/ML AMPUL IVP PRN ×5 (05:08→20:27)
[2018-07-17] MEDS: NORMAL SALINE 5 ML DISP.SYRIN IVF SCH ×3 (05:13→21:58)
[2018-07-17 05:37] LABS: BASOPHILS # (AUTO) 0.1 K/uL (0.0-0.2); BASOPHILS % (AUTO) 0.4 % (0.0-2.0); EOSINOPHILS # (AUTO) 0.2 K/uL (0.0-0.4); EOSINOPHILS % (AUTO) 1.2 % (0.0-4.0); HEMATOCRIT 23.7 % (36-48); HEMOGLOBIN 7.9 g/dL (12.0-16.0); LYMPHOCYTES # (AUTO) 1.3 K/uL (1.0-5.5); LYMPHOCYTES % (AUTO) 6.3 % (20.5-51.5); MEAN CORPUSCULAR HEMOGLOBIN 29 pg (27-31); MEAN CORPUSCULAR HGB CONC 33 % (32-36); MEAN CORPUSCULAR VOLUME 88 fL (79.0-98.0); MONOCYTES # (AUTO) 0.3 K/uL (0.0-1.0); MONOCYTES % (AUTO) 1.6 % (1.7-9.3); NEUTROPHILS # (AUTO) 18.8 K/uL (1.8-7.7); PLATELET COUNT (AUTO) 374 K/uL (130-430); RED CELL DISTRIBUTION WIDTH 18.1 % (9.0-15.0); WHITE BLOOD COUNT (AUTO) 20.7 K/uL (4.8-10.8)
[2018-07-17 06:01] LABS: ALBUMIN 2.2 g/dL (3.4-4.8); C-REACTIVE PROTEIN QUANT 9.5 mg/dL (0-0.5); CALCIUM 8.3 mg/dL (8.4-11.0); CREATININE 3.86 mg/dL (0.55-1.30); PHOSPHORUS 6.8 mg/dL (2.7-4.5); POTASSIUM 4.6 mmol/L (3.5-5.1); TOTAL BILIRUBIN 0.6 mg/dL (0.0-1.0)
[2018-07-17] MEDS: NACL 0.9% 1,000 ML IV SCH ×2 (07:55→20:41)
[2018-07-17 08:01] VITALS: BP_SYST 174
[2018-07-17] MEDS: PANTOPRAZOLE SODIUM 40 MG TAB PO SCH (09:09)
[2018-07-17] MEDS: NEPHROVITE, (FOLIC ACID/VITAMIN B COMP W-C 1 TAB) PO SCH (09:09)
[2018-07-17] MEDS: amLODIPine BESYLATE 5 MG TABLET PO SCH (09:10)
[2018-07-17] MEDS: METOPROLOL SUCCINATE 25 MG TAB.SR.24H (TOPROL XL) PO SCH (09:11)
[2018-07-17] MEDS: ASCORBIC ACID 500 MG TABLET PO SCH ×2 (09:11→20:25)
[2018-07-17] MEDS: POLYETHYLENE GLYCOL 3350, 17 GM/ POWD.PACK PO SCH (09:11)
[2018-07-17] MEDS: metroNIDAZOLE 500 MG TABLET PO SCH ×2 (09:11→20:25)
[2018-07-17] MEDS: CALCIUM CARBONATE 500 MG/ TAB.CHEW PO SCH (09:12)
[2018-07-17] MEDS: NITROGLYCERIN 0.2 MG/HR PATCH.TD24 TD SCH (09:12)
[2018-07-17] MEDS: MEROPENEM 500 MG in NS 50 ML IV SCH ×2 (09:12→20:25)
[2018-07-17] MEDS: MUPIROCIN 2% TOPICAL OINTMENT 22 GM NS SCH ×2 (09:13→21:57)
[2018-07-17] MEDS: ENOXAPARIN SODIUM 40 MG/0.4 ML SYRINGE SUBCUT SCH (09:19)
[2018-07-17] MEDS: ASPIRIN 81 MG TABLET(ECOTRIN) PO SCH (09:20)
[2018-07-17 09:58] LABS: ERYTHROCYTE SEDIMENTATION RATE 91 MM/HR (0-20)
[2018-07-17] MEDS: LINEZOLID 300 ML IV SCH ×2 (10:50→21:56)
[2018-07-17 11:56] LABS: NEUTROPHILS % (AUTO) 90.5 % (40.0-70.0)
[2018-07-17 12:14] VITALS: BP_SYST 170
[2018-07-17 12:58] VITALS: BP_SYST 144
[2018-07-17] MEDS ORDERED: DILTIAZEM HCL 30 MG TABLET PO ONE (15:15)
[2018-07-17 16:50] VITALS: BP_SYST 151
[2018-07-17] MEDS: ATORVASTATIN 10 MG TABLET PO SCH (20:25)
[2018-07-17 20:30] VITALS: BP_SYST 164
[2018-07-17] MEDS: DILTIAZEM HCL 30 MG TABLET PO SCH (21:56)
[2018-07-17] MEDS: ALPRAZolam 0.25 MG TABLET PO PRN (22:20)
[2018-07-18] VITALS: BP_SYST 125
[2018-07-18] MEDS: HYDROmorphone 1 MG INJ. 1 MG/ML AMPUL IVP PRN ×5 (00:20→21:25)
[2018-07-18] MEDS: IPRATROPIUM/ALBUTEROL SULFATE 3 ML AMPUL.NEB (DUONEB) INH PRN ×3 (01:54→12:24)
[2018-07-18] MEDS: NORMAL SALINE 5 ML DISP.SYRIN IVF SCH ×3 (06:00→22:18)
[2018-07-18] MEDS: DILTIAZEM HCL 30 MG TABLET PO SCH ×3 (06:00→22:17)
[2018-07-18 08:01] VITALS: BP_SYST 147
[2018-07-18 08:24] LABS: ALBUMIN 2.3 g/dL (3.4-4.8); C-REACTIVE PROTEIN QUANT 6.8 mg/dL (0-0.5); CALCIUM 8.1 mg/dL (8.4-11.0); CREATININE 4.42 mg/dL (0.55-1.30); PHOSPHORUS 7.5 mg/dL (2.7-4.5); POTASSIUM 5.1 mmol/L (3.5-5.1); TOTAL BILIRUBIN 0.6 mg/dL (0.0-1.0)
[2018-07-18] MEDS: ENOXAPARIN SODIUM 40 MG/0.4 ML SYRINGE SUBCUT SCH (08:41)
[2018-07-18] MEDS: MEROPENEM 500 MG in NS 50 ML IV SCH ×2 (08:42→21:03)
[2018-07-18] MEDS: MUPIROCIN 2% TOPICAL OINTMENT 22 GM NS SCH (08:42)
[2018-07-18] MEDS: METOPROLOL SUCCINATE 25 MG TAB.SR.24H (TOPROL XL) PO SCH (09:00)
[2018-07-18] MEDS: PANTOPRAZOLE SODIUM 40 MG TAB PO SCH (09:00)
[2018-07-18] MEDS: POLYETHYLENE GLYCOL 3350, 17 GM/ POWD.PACK PO SCH (09:00)
[2018-07-18] MEDS: CALCIUM CARBONATE 500 MG/ TAB.CHEW PO SCH (09:00)
[2018-07-18] MEDS: NEPHROVITE, (FOLIC ACID/VITAMIN B COMP W-C 1 TAB) PO SCH (09:00)
[2018-07-18] MEDS: ASPIRIN 81 MG TABLET(ECOTRIN) PO SCH (09:00)
[2018-07-18] MEDS: ASCORBIC ACID 500 MG TABLET PO SCH ×2 (09:00→20:52)
[2018-07-18] MEDS: amLODIPine BESYLATE 5 MG TABLET PO SCH (09:00)
[2018-07-18] MEDS: LINEZOLID 300 ML IV SCH ×2 (09:20→22:17)
[2018-07-18] MEDS: NITROGLYCERIN 0.2 MG/HR PATCH.TD24 TD SCH (09:21)
[2018-07-18] MEDS ORDERED: SODIUM CHLORIDE 0.65% NASAL SPRAY NS PRN (09:30)
[2018-07-18] MEDS ORDERED: HYDROmorphone 1 MG INJ. 1 MG/ML AMPUL IVP ONE (12:00)
[2018-07-18] MEDS: ALUMINUM HYDROXIDE 1920 mg/30 ML UDC PO SCH ×3 (12:00→23:32)
[2018-07-18 12:02] VITALS: BP_SYST 148
[2018-07-18] MEDS: ALPRAZolam 0.25 MG TABLET PO PRN ×2 (12:56→23:22)
[2018-07-18 13:07] LABS: BASOPHILS # (AUTO) 0.1 K/uL (0.0-0.2); BASOPHILS % (AUTO) 0.3 % (0.0-2.0); EOSINOPHILS % (AUTO) 0.1 % (0.0-4.0); HEMATOCRIT 23.4 % (36-48); HEMOGLOBIN 7.7 g/dL (12.0-16.0); LYMPHOCYTES # (AUTO) 0.4 K/uL (1.0-5.5); LYMPHOCYTES % (AUTO) 2.4 % (20.5-51.5); MEAN CORPUSCULAR HEMOGLOBIN 29 pg (27-31); MEAN CORPUSCULAR HGB CONC 33 % (32-36); MEAN CORPUSCULAR VOLUME 89 fL (79.0-98.0); MONOCYTES # (AUTO) 0.1 K/uL (0.0-1.0); MONOCYTES % (AUTO) 0.4 % (1.7-9.3); NEUTROPHILS # (AUTO) 16.5 K/uL (1.8-7.7); PLATELET COUNT (AUTO) 182 K/uL (130-430); RED BLOOD CELL COUNT(AUTO) 2.64 MIL/uL (4.2-6.2); RED CELL DISTRIBUTION WIDTH 18.5 % (9.0-15.0); WHITE BLOOD COUNT (AUTO) 17.1 K/uL (4.8-10.8)
[2018-07-18 13:12] LABS: NEUTROPHILS % (AUTO) 96.8 % (40.0-70.0)
[2018-07-18] MEDS: NACL 0.9% 1,000 ML IV SCH ×2 (14:25→17:39)
[2018-07-18 16:02] VITALS: BP_SYST 157
[2018-07-18] MEDS ORDERED: HEPARIN SODIUM,PORCINE 5000 UNITS/ML VIAL IVP ONE (19:30)
[2018-07-18 20:00] VITALS: BP_SYST 152
[2018-07-18] MEDS ORDERED: HEPARIN SODIUM,PORCINE 5000 UNITS/ML VIAL ONE (20:58)
[2018-07-18] MEDS: ATORVASTATIN 10 MG TABLET PO SCH (21:03)
[2018-07-18] MEDS: DIPHENHYDRAMINE INJ 50 MG/ML VIAL IVP PRN (21:25)
[2018-07-19 01:19] VITALS: BP_SYST 169
[2018-07-19] MEDS: HYDROmorphone 1 MG INJ. 1 MG/ML AMPUL IVP PRN (02:03)
[2018-07-19] MEDS: DIPHENHYDRAMINE INJ 50 MG/ML VIAL IVP PRN (02:40)
[2018-07-19] MEDS: IPRATROPIUM/ALBUTEROL SULFATE 3 ML AMPUL.NEB (DUONEB) INH PRN ×2 (03:30→07:48)
[2018-07-19 04:00] VITALS: BP_SYST 147
[2018-07-19] MEDS: NORMAL SALINE 5 ML DISP.SYRIN IVF SCH (05:28)
[2018-07-19] MEDS: ALUMINUM HYDROXIDE 1920 mg/30 ML UDC PO SCH (06:00)
[2018-07-19] MEDS: DILTIAZEM HCL 30 MG TABLET PO SCH (06:28)
[2018-07-19 08:01] LABS: HEMATOCRIT 24.8 % (36-48); HEMOGLOBIN 8.1 g/dL (12.0-16.0); MEAN CORPUSCULAR HEMOGLOBIN 29 pg (27-31); MEAN CORPUSCULAR HGB CONC 33 % (32-36); MEAN CORPUSCULAR VOLUME 87 fL (79.0-98.0); PLATELET COUNT (AUTO) 321 K/uL (130-430); RED BLOOD CELL COUNT(AUTO) 2.85 MIL/uL (4.2-6.2); RED CELL DISTRIBUTION WIDTH 18.4 % (9.0-15.0)
[2018-07-19 08:05] VITALS: BP_SYST 96
[2018-07-19 08:11] LABS: ALBUMIN 2.2 g/dL (3.4-4.8); CALCIUM 8.3 mg/dL (8.4-11.0); CREATININE 5.1 mg/dL (0.55-1.30); TOTAL BILIRUBIN 0.8 mg/dL (0.0-1.0)
[2018-07-19] MEDS ORDERED: DEXTROSE 50% JECT 50 ML DISP.SYRIN IVP ONE (08:15)
[2018-07-19] MEDS ORDERED: DEXTROSE 50% JECT 50 ML DISP.SYRIN ONE (08:18)
[2018-07-19 08:22] LABS: POTASSIUM 6.7 mmol/L (3.5-5.1)
[2018-07-19 08:23] LABS: PHOSPHORUS 10.5 mg/dL (2.7-4.5)
[2018-07-19] MEDS ORDERED: NALOXONE HCL 2 MG/2 ML SYR ONE (08:38)
[2018-07-19] MEDS ORDERED: NS 500 ML IV ONE (08:45)
[2018-07-19] MEDS ORDERED: NALOXONE HCL 2 MG/2 ML SYR IVP ONE (08:45)
[2018-07-19] MEDS: amLODIPine BESYLATE 5 MG TABLET PO SCH (09:00)
[2018-07-19] MEDS ORDERED: NACL 0.9% 1,000 ML IV ONE (09:00)
[2018-07-19] MEDS: PANTOPRAZOLE SODIUM 40 MG TAB PO SCH (09:00)
[2018-07-19] MEDS: ASPIRIN 81 MG TABLET(ECOTRIN) PO SCH (09:00)
[2018-07-19] MEDS: CALCIUM CARBONATE 500 MG/ TAB.CHEW PO SCH (09:00)
[2018-07-19] MEDS: POLYETHYLENE GLYCOL 3350, 17 GM/ POWD.PACK PO SCH (09:00)
[2018-07-19] MEDS: METOPROLOL SUCCINATE 25 MG TAB.SR.24H (TOPROL XL) PO SCH (09:00)
[2018-07-19] MEDS: NITROGLYCERIN 0.2 MG/HR PATCH.TD24 TD SCH (09:00)
[2018-07-19] MEDS: NEPHROVITE, (FOLIC ACID/VITAMIN B COMP W-C 1 TAB) PO SCH (09:00)
[2018-07-19] MEDS: ASCORBIC ACID 500 MG TABLET PO SCH (09:00)
[2018-07-19 10:24] LABS: BAND % (MANUAL) 2 % (0-6)
[2018-07-19 10:25] LABS: BASOPHILS % (MANUAL) 0 % (0-2); EOSINOPHILS % (MANUAL) 0 % (0-7); LYMPHOCYTES % (MANUAL) 4 % (20-46); MONOCYTES % (MANUAL) 1 % (0-11)
[2018-07-19 10:51] VITALS: BP_SYST 96
[2018-07-19 11:32] LABS: ERYTHROCYTE SEDIMENTATION RATE 74 MM/HR (0-20)
[2018-07-20 12:13] LABS: HEPATITIS A AB, IgM Negative (Negative); HEPATITIS B CORE AB, IgM Negative (Negative); HEPATITIS B SURFACE AG Negative (Negative)
[2018-07-20 21:07] LABS: ANTI NUCLEAR AB WITH REFLEX Negative (Negative)
[2018-07-21 15:26] LABS: ANTI-SMOOTH MUSCLE AB 7 Units (0-19)
== END 2018-07-19 10:47 | disposition expired | DRG 710 ==
LOC: SED 22:26 → SMU 22:43 → STU 07-15 08:15
PROVIDERS: ADMIT Preventive Medicine Preventive Medicine/Occupational Environmental Medicine; ATTEND Preventive Medicine Preventive Medicine/Occupational Environmental Medicine
PROC: 0DB68ZX Excision of Stomach, Via Natural or Artificial Opening Endoscopic, Diagnostic (ICD-10-PCS; 2018-07-05)
PROC: 0DP64UZ Removal of Feeding Device from Stomach, Percutaneous Endoscopic Approach (ICD-10-PCS; principal; 2018-07-05 08:00)
PROC: 0JPT3XZ Removal of Tunneled Vascular Access Device from Trunk Subcutaneous Tissue and Fascia, Percutaneous Approach (ICD-10-PCS; 2018-07-10)
PROC: 02HV33Z Insertion of Infusion Device into Superior Vena Cava, Percutaneous Approach (ICD-10-PCS; 2018-07-18)
PROC: B548ZZA Ultrasonography of Superior Vena Cava, Guidance (ICD-10-PCS; 2018-07-18)
DX: A41.9 Sepsis, unspecified organism (principal); J96.20 Acute and chronic respiratory failure, unspecified whether with hypoxia or hypercapnia; R65.21 Severe sepsis with septic shock; I13.2 Hypertensive heart and chronic kidney disease with heart failure and with stage 5 chronic kidney disease, or end stage renal disease; E43 Unspecified severe protein-calorie malnutrition; I47.1 Supraventricular tachycardia; J18.9 Pneumonia, unspecified organism; E11.22 Type 2 diabetes mellitus with diabetic chronic kidney disease; K65.9 Peritonitis, unspecified; R34 Anuria and oliguria; N18.6 End stage renal disease; N17.9 Acute kidney failure, unspecified; K29.80 Duodenitis without bleeding; K94.23 Gastrostomy malfunction; Y83.8 Other surgical procedures as the cause of abnormal reaction of the patient, or of later complication, without mention of misadventure at the time of the procedure; I50.23 Acute on chronic systolic (congestive) heart failure; K21.9 Gastro-esophageal reflux disease without esophagitis; D63.1 Anemia in chronic kidney disease; E11.65 Type 2 diabetes mellitus with hyperglycemia; Z66 Do not resuscitate; E78.5 Hyperlipidemia, unspecified; E83.39 Other disorders of phosphorus metabolism; E83.41 Hypermagnesemia; I82.409 Acute embolism and thrombosis of unspecified deep veins of unspecified lower extremity; E83.42 Hypomagnesemia; E88.09 Other disorders of plasma-protein metabolism, not elsewhere classified; E83.51 Hypocalcemia; E83.52 Hypercalcemia; I46.9 Cardiac arrest, cause unspecified; R18.8 Other ascites; R59.1 Generalized enlarged lymph nodes; F41.9 Anxiety disorder, unspecified; R16.2 Hepatomegaly with splenomegaly, not elsewhere classified; R19.7 Diarrhea, unspecified; I08.1 Rheumatic disorders of both mitral and tricuspid valves; E87.1 Hypo-osmolality and hyponatremia; K29.60 Other gastritis without bleeding; R13.12 Dysphagia, oropharyngeal phase; D47.3 Essential (hemorrhagic) thrombocythemia; R26.9 Unspecified abnormalities of gait and mobility; E87.5 Hyperkalemia; G89.4 Chronic pain syndrome; I48.92 Unspecified atrial flutter; J44.0 Chronic obstructive pulmonary disease with (acute) lower respiratory infection; J44.1 Chronic obstructive pulmonary disease with (acute) exacerbation; K59.00 Constipation, unspecified; N12 Tubulo-interstitial nephritis, not specified as acute or chronic; Z22.322 Carrier or suspected carrier of Methicillin resistant Staphylococcus aureus; Z86.718 Personal history of other venous thrombosis and embolism; Z99.2 Dependence on renal dialysis; Z87.01 Personal history of pneumonia (recurrent); Z87.891 Personal history of nicotine dependence; Z88.5 Allergy status to narcotic agent; Z88.8 Allergy status to other drugs, medicaments and biological substances; Z79.899 Other long term (current) drug therapy; Y92.89 Other specified places as the place of occurrence of the external cause; Z90.49 Acquired absence of other specified parts of digestive tract; Z68.21 Body mass index [BMI] 21.0-21.9, adult
CPT/HCPCS: 36415; 43239; 71045; 71250-TC; 74018; 74181; 76705; 80048; 80053; 80074; 81000-TC; 82435-TC; 82570-TC; 82575-TC; 82962; 83516; 83540-TC; 83550-TC; 83690-TC; 83735-TC; 83880; 84100-TC; 84302-TC; 85007; 85025; 85027; 85610-TC; 85651-TC; 85730-TC; 86038; 86140; 87040-TC; 87070-TC; 87081; 87086; 88305; 88312; 88313; 93005; 93306; 94640; 94760; 99285; J0696; J1160; J1170; J1200; J1644; J1650; J1940; J2001; J2020; J2175; J2185; J2250; J2270; J2310; J2405; J2543; J3490; J7030; J7040; J7050; J7060; J7620; Q0163; Q9964